=== PATIENT | female | born 1955 | race Hispanic/Latino ===

== ENCOUNTER → 2019-05-08 13:25 | Outpatient (CLI) | payer OTHER, SELFPAY ==
--- NOTE | ~2019-05-08 | DEXA_ITS ---
Bone Density Report Name: Heide Reyes Age: 64 Sex: Female Ethnicity: Date of : 1955 Indication: osteopenia; monitoring treatment; height loss; hysterectomy; Referring Provider: TISHA, GIAN Study: Bone densitometry was performed. Exam Date: May 08, 2019 Accession number: [id number] Bone Density: Region BMD T-score Z-score Classification AP Spine (L1-L4) 0.906 -1.3 0.4 Osteopenia Femoral Neck (Left) 0.637 -1.9 -0.6 Osteopenia Total Hip (Left) 0.832 -0.9 0.1 Normal Femoral Neck (Right) 0.672 -1.6 -0.3 Osteopenia Total Hip (Right) 0.851 -0.7 0.2 Normal Total Hip Mean 0.842 -0.8 0.2 Normal World Health Organization criteria for BMD impression classify patients as: Normal (T-score at or above -1.0), Osteopenia (T-score between -1.0 and -2.5), or Osteoporosis (T-score at or below -2.5). 10-year Fracture Risk: FRAX not reported because: Treated for osteoporosis Previous Exams: Region Exam Age BMD T-score BMD Change BMD Change Date g/cm2 vs Baseline vs Previous AP Spine(L1-L4) 05/08/2019 64 0.906 -1.3 0.002 -0.017 04/27/2017 62 0.923 -1.1 0.019 -0.002 04/07/2015 60 0.926 -1.1 0.021 -0.006 02/20/2013 58 0.932 -1.0 0.028* 0.028* 01/19/2011 55 0.904 -1.3 Total Hip(Left) 05/08/2019 64 0.832 -0.9 0.084* 0.007 04/27/2017 62 0.825 -1.0 0.077* 0.064* 04/07/2015 60 0.760 -1.5 0.013 -0.046* 02/20/2013 58 0.806 -1.1 0.059* 0.059* 01/19/2011 55 0.747 -1.6 Total Hip(Right) 05/08/2019 64 0.851 -0.7 0.021 0.004 04/27/2017 62 0.847 -0.8 0.017 0.011 04/07/2015 60 0.836 -0.9 0.007 0.005 02/20/2013 58 0.831 -0.9 0.002 0.002 01/19/2011 55 0.829 -0.9 *Denotes significance at 95% confidence level, LSC for AP Spine = 0.022 g/cm2, LSC for Total Hip = 0.027 g/cm2 Clinical Information Provided by Patient: Is being treated for osteoporosis Has used the following medications: HRT (i.e. estrogen/hormone therapy), Vitamin D, Calcium Has the following medical conditions: Hysterectomy Patient maximum height was 60.5 Menopause Age: 45 No regular weight bearing exercise Drinks caffeinated beverages Onset of menses at age 11 Number of children 3
== END ==
PROVIDERS: PCP Internal Medicine; Visit Provider Nurse Practitioner
DX: M85.88 Other specified disorders of bone density and structure, other site (principal); M85.852 Other specified disorders of bone density and structure, left thigh; M85.851 Other specified disorders of bone density and structure, right thigh
CPT/HCPCS: 77080

== ENCOUNTER → 2019-05-17 17:17 | Outpatient (CLI) | payer OTHER, SELFPAY ==
--- NOTE | ~2019-05-17 | MM_ITS ---
EXAMINATION: MM scrn steven implant BI w elina HISTORY: Screening TECHNIQUE: Craniocaudal and mediolateral oblique 3-D tomosynthesis images with implant displacement a nd synthetic 2-D images were generated. Craniocaudal and mediolateral oblique views of the breasts wi thout implant displacement were obtained using full field digital mammography. CAD analysis was submi tted and interpreted. COMPARISON: 04/27/2017, 04/09/2016, 04/07/2015 bilateral digital screening mammogram examinations BREAST PARENCHYMAL COMPOSITION: There are scattered areas of fibroglandular density. FINDINGS: Status post bilateral augmentation mammoplasty There is no evidence of suspicious mass, jeyson cification, or architectural distortion to suggest malignancy in either breast. Occasional benign jeyson cification. There has been no suspicious interval change. IMPRESSION: 1. No mammographic evidence of malignancy. 2. Recommend routine screening mammography in one year. BI-RADS Category 2: Benign finding(s). Reviewed, dictated and finalized at location A. [facility] HELPER
== END ==
PROVIDERS: Visit Provider Nurse Practitioner
DX: Z12.31 Encounter for screening mammogram for malignant neoplasm of breast (principal)
CPT/HCPCS: 77063; 77067